=== PATIENT | female | born 1990 | race African-American/Black ===

== ENCOUNTER 2018-09-29 20:37 | Emergency (ER) | payer OTHER ==
[~2018-09-29] VITALS: Ht 170.2 cm; Wt 137.0 kg
[2018-09-29 20:59] LABS: URINE BILIRUBIN NEGATIVE (Negative); URINE BLOOD NEGATIVE (Negative); URINE CLARITY CLEAR; URINE COLOR YELLOW; URINE GLUCOSE-RANDOM* NEGATIVE (Negative); URINE KETONES NEGATIVE (Negative); URINE LEUKOCYTES-REFLEX NEGATIVE (Negative); URINE NITRITE-REFLEX NEGATIVE (Negative); URINE PROTEIN (DIPSTICK) NEGATIVE (Negative); URINE UROBILINOGEN 0.2 E.U./dl (0.2-1.0)
[2018-09-29 21:40] LABS: ABSOLUTE NEUTROPHILS 7.6 thou/uL (1.4-8.2); HEMATOCRIT 31.9 % (37.0-47.0); HEMOGLOBIN 10.3 gm/dL (12.0-15.0); LYMPHOCYTES 32.7 % (24.0-44.0); MCHC 32.3 g/dL (28.0-37.0); MCV 77.3 fL (80.0-100.0); MONOCYTES 7.2 % (1.0-8.0); PLATELET COUNT 420 thou/uL (150-400); POLYS 55.1 % (36.0-66.0); RBC 4.12 mil/uL (4.20-5.00); RDW 16.6 % (10.5-14.5); WBC 13.8 thou/uL (4.0-11.0)
[2018-09-29] MEDS ORDERED: PRILOSEC OTC20 MG PO (21:44)
[2018-09-29 21:53] LABS: ANION GAP 8 mmol/L (7-16); BUN 10 mg/dL (7-18); CALCIUM 8.8 mg/dL (8.5-10.1); CHLORIDE 102 mmol/L (98-107); CO2 26 mmol/L (21-32); CREATININE 0.7 mg/dL (0.6-1.0); GLUCOSE 113 mg/dL (74-106); SODIUM 136 mmol/L (136-145)
[2018-09-29 21:58] LABS: ALBUMIN 3.5 g/dL (3.4-5.0); LIPASE 123 U/L (73-393); SGOT 15 U/L (15-37); SGPT 27 U/L (30-65); TOTAL BILIRUBIN < 0.1 mg/dL (<0.1-1.0); TOTAL PROTEIN 8.2 g/dL (6.4-8.2)
[2018-09-30] MEDS ORDERED: NORCO 5-325 TA1 EACH PO (04:07)
[2018-09-30] MEDS ORDERED: SENNA-DOCUSATE1 EAC1 PO (04:07)
[2018-09-30] MEDS ORDERED: IBUPROFEN 800800 M1 PO (04:07)
[2018-09-30 04:31] VITALS: BP 160/92
== END 2018-09-30 04:35 | disposition home or self-care (01) ==
LOC: ER 20:37
PROVIDERS: Physician Assistant
DX: R10.2 Pelvic and perineal pain (principal); R19.00 Intra-abdominal and pelvic swelling, mass and lump, unspecified site